=== PATIENT | female | born 1970 | race Caucasian/White ===

== ENCOUNTER → 2016-10-20 | Outpatient (CLI) | payer MEDICAID ==
[~2016-10-20] MED LIST: ALBUTEROL2 PUFFS/17 IN; AMARYL4 MG PO; CIPRO 500MG TA500 MG PO; CYMBALTA30 MG PO; DICLOFENAC 50MG50 MG PO; FLEXERIL10 MG PO; GABAPENTIN 400400 M1 GT; GABAPENTIN300 M1 PO; HUMULIN 70100 UNITS/ SC; INVOKANA100 MG PO; JANUVIA100 MG PO; KEFLEX 500MG.500 MG PO; LANTUS100 U/ML SC; LIPITOR40 MG PO; LORTAB 5/500 501 TAB PO; LYRICA 100 MG100 MG PO; MOTRIN 600MG.600 MG PO; ONGLYZA5 MG PO; PHENERGAN 25MG.25 M1 PO; PREGABALIN 50MG50 MG PO; RELION NOVOL100 U/M1 SC; SULFAMETHOXAZOL1 TA6 PO; TESSALON PERLE100 MG PO; TRADJENTA5 MG PO; ZITHROMAX Z PA250 MG PO; ZITHROMAX Z-PA250 M1 PO
--- NOTE | 2016-10-20 15:25 | RADIOLOGY REPORT PS360 ---
US THYROID HISTORY: TSH DEFICIENCY ORDERING PHYSICIAN: Bismark Manzo MD PATIENT AGE: 45 years COMPARISON: None FINDINGS: The right lobe measures 4.4 x 1.5 x 2.1 cm. There is some decreased echogenicity in the lower pole on the right and 14 x 7 mm and could be due to small nodule. This however is questionable and is not well demonstrated in both planes. Follow-up suggested. Left lobe is 4.8 x 2.1 x 2.7 cm and contains a 5 mm hypoechoic nodule superiorly, 6 mm hypoechoic nodule in the mid aspect, in an ill-defined 19 x 10 mm area of heterogeneous echogenicity in the lower pole. The isthmus is mildly prominent at 5 mm. IMPRESSION: 1. Ill-defined heterogeneous areas of echogenicity in both lobes of the thyroid gland and may represent small nodules versus heterogeneous echogenicity. 6 month follow-up recommended. 2. 2 hypoechoic nodules on the left at 5 and 6 mm.
== END ==
LOC: RAD 12:59
DX: E03.8 Other specified hypothyroidism (principal)

== ENCOUNTER 2016-12-25 13:47 | Emergency (ER) | payer MEDICAID ==
[~2016-12-25] VITALS: Ht 170.2 cm; Wt 113.4 kg
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
--- OUTSIDE RECORDS SUMMARY | 2016-12-25 14:01 | External Medical Summary Rpt ---
Author Author , FRANK MARIE Address Unknown Phone [email or web address] [email or web address] Care Nurse Practitioner Manager Name Role Phone RANDI BRYAN Unavailable Unavailable [employer] Unavailable Unavailable INC, [employer] Unavailable Unavailable INC, [employer] ANIDO ROS, ANIDO ROS Unavailable Unavailable JUMA TAR, Unavailable Unavailable JUMA TAR [facility] Unavailable Unavailable [facility], [facility] MEHTA, MEHTA Unavailable Unavailable MEHTA ALL, MEHTA ALL Unavailable Unavailable MAYANK ROMA, MAYANK Unavailable Unavailable ROMA [facility] Unavailable Unavailable [place], [facility] Unavailable Unavailable [place], [facility] KECIA HOFFMAN, KECIA Unavailable Unavailable DALTON JORGE HANNA, Unavailable Unavailable JORGE HANNA LISETTE RUI, Unavailable Unavailable LISETTE RUI CAIO KAMILA, CAIO Unavailable Unavailable [facility] Unavailable Unavailable [facility], [facility] ARCENIO RICHEY, Unavailable Unavailable JR ARCENIO RICHEY KAMILA, EDUARDO Unavailable Unavailable KAMIL[facility] Unavailable Unavailable INC, [facility], Unavailable Unavailable [facility] Unavailable Unavailable [facility], [facility] Un[facility], [facility] CHARISMA ZAFAR Unavailable Unavailable CHARISMA ANG, Unavailable Unavailable CHARISMA ZAFAR ANG, Unavailable Unavailable CHARISMA VILLATORO [facility] Unavailable Unavailable HOSPITALS, [facility] Purpose Continuity of Care Document - 04-14-2015 through 2016 Problems Code Diagnosis DOS Provider Status K5900 CONSTIPATIO 12-05-2016 [facility] N [facility] UNSPECIFIED T39914 CELLULITIS 12-05-2016 [facility] OF LEFT ASSOCIATES [place] E038 OTHER 10-20-2016 [facility] HYPOTHYROID INC ISM E042 NONTOXIC 10-20-2016 [facility] R GOITER IMAGING ASS E1142 TYPE 2 10-06-2016 [facility] DIABETES [facility] MELLITUS W/DIAB POLYNEUROPA THY E1165 TYPE 2 10-06-2016 [facility] DIABETES ASS[facility]IATES MELLITUS WITH HYPERGLYCEM IA H74201 CUTANEOUS 09-24-2016 [facility] ABSCESS OF ASSOCIATES UNSPECIFIED FOOT E039 HYPOTHYROID 09-20-2016 [facility] ISM [facility]ICI[facility] UNSPECIFIED LA E785 HYPERLIPIDE 09-20-2016 [facility] MALIKA ASS[facility] UNSPECIFIED I10 ESSENTIAL 09-20-2016 [facility] PRIMARY PHYSICIANS HYPERTENSIO LA N R34209 PAIN IN 09-20-2016 [facility] LEFT ASSOCIATES SHOULDER D352 BENIGN 07-14-2016 [facility] GLAND Z5329 PROC & [place] 07-01-2016 [facility] NOT CARRIED [facility] OUT INC PATIENTS OTH REASON [id number] TYPE 2 06-28-2016 [facility] MELLITUS CONSULTANTS PDR MACULAR EDEMA BILAT 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-28-2016 MARIA[facility] CURRENT USE RETINA OF INSULIN CONSULTANTS H538 OTHER 06-07-2016 [facility] DIST[facility]ANCE [facility] S G4733 OBSTRUCTIVE 06-01-2016 [facility] SLEEP HOME APNEA ADULT MEDICAL PEDIATRIC EQUIPME H3582 RETINAL 06-01-2016 SEN ISCHEMIA 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 H539 UNSPECIFIED 05-18-2016 [facility] J329 CHRONIC 05-18-2016 [facility] SINUSITIS MEDICAL UNSPECIFIED IMAGING ASS [id number] SPRAIN 05-10-2016 [facility] UNSPEC ASSOCIATES LIGAMENT ROGHT ANKLE INITIAL ENC L90484 PAIN IN 05-08-2016 [facility] RIGHT [facility]KLE [facility]ICAL [facility]ING ASS N86672 PAIN IN 05-08-2016 [facility] [place] RIGHT FOOT [facility]ICAL [facility]ING ASS M7989 OTHER 05-08-2016 [facility] SPECIFIED MEDICAL SOFT TISSUE IMAGING ASS DISORDERS M4656NH CONTUSION 05-08-2016 [place] [place] OF RIGHT MEDICAL ANKLE IMAGING ASS INITIAL ENCOUNTER V1053OQ CONTUSION 05-08-2016 V[facility] OF RIGHT MEDICAL FOOT IMAGING ASS INITIAL ENCOUNTER T90501Y DISPLACED 05-08-2016 [facility] FX LAT PHYSICIANS, [facility] PLL[facility] RT FOOT INIT CLOS FX L43219V NONDSPLC FX 05-08-2016 [facility] CUNE[facility]ORM INC RT FOOT INIT CLOS FX H14184P FX UNS 05-08-2016 [facility] BONES RT S INC FOOT INIT ENC CLOS FX E119 TYPE 2 03-28-2016 [facility] DIABETES PHYSICIANS MELLITUS GROUP WITHOUT COMPLICATIO NS E784 OTHER 03-28-2016 [facility] HYPERLIPIDE PHYSICIANS MALIKA GROUP 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-28-2016 [facility] LEGS PHYSICIANS SYNDROME GROUP Z6841 BODY MASS 03-28-2016 [facility] INDEX BMI PHYSICIANS 40.0-44.9 GROUP ADULT E782 MIXED 03-15-2016 [facility] HYPERLIPIDE ASSOCIATES MALIKA Z23 ENCOUNTER 03-15-2016 [facility] FOR ASSOCIATES IMMUNIZATIO N Z720 TOBACCO USE 03-15-2016 [facility] O29512 TYPE 2 DM 02-25-2016 CHARISMA W/PROLIFERA ANG TIVE DIAB RETINOPATHY W/ME J40 BRONCHITIS 02-11-2016 [facility] NOT PHYSICIANS SPECIFIED GROUP ACUTE OR CHRONIC Q99055 PAIN IN 01-26-2016 [facility] LEFT FOOT ASSOCIATES 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 T02033 PRESSURE 01-12-2016 PROGRESSIVE ULCER OF PODIATRY OTHER SITE STAGE 3 M2041 OTHER 01-12-2016 PROGRESSIVE HAMMER TOES PODIATRY ACQUIRED RIGHT FOOT M2570 OSTEOPHYTE 01-12-2016 PROGRESSIVE UNSPECIFIED PODIATRY JOINT E1140 TYPE 2 DM 12-28-2015 [facility] NEUROPATHY UNSPECIFIED M2042 OTHER 12-28-2015 [facility] FOOT ACQUIRED CENTER LEFT FOOT V28364 PAIN IN 12-28-2015 [facility] UNSPECIFIED FOOT FOOT CENTER D94586 DM UNDERLY 12-11-2015 [facility] PROLIF DIAB ASSOCIATES RETINPATH W/MACULAR EDEMA H259 UNSPECIFIED 12-04-2015 CHARISMA VILLATORO AGE-RELATED CATARACT I02740A UNS OPEN 11-05-2015 [facility] WOUND UNS ASSOCIATES FINGER W/O DAMAGE NAIL INIT C79631 CELLULITIS 11-01-2015 [facility] RIGHT PHYSICIANS, [place] [place] PLLC E669 OBESITY 08-21-2015 [place] [facility] J209 ACUTE 08-04-2015 [facility] BRONCHITIS ASSOCIATES UNSPECIFIED J74998 OTH SPEC DM 05-22-2015 SCIFRES ANG SEV NONPROLIF DIAB RETINOPATHY W/ME 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-22-2015 SCIFRES ANG ASTIGMATISM BILATERAL Medications Na ND Rx Da Fi Fi [...] 0 AR MA AL CY #5 91 RE 81 06 06 60 30 00 WA Ac LI 13 -0 -3 .0 00 L- ti ON 10 4- 0- 00 08 MA ve 31 20 20 83 RT IN 16 17 17 70 S 9 20 PH SY AR R MA 1 CY ML #5 30 91 GX 5/ 16 " AT 68 06 06 30 30 00 WA Ac OR 64 -0 -3 .0 00 L- ti VA 50 7- 0- [address] 46 20 20 48 RT AT 05 17 17 96 IN 4 69 PH AR 40 MA CY MG #5 TA 91 BL ET RE 00 05 06 10 30 00 WA Ac LI 16 -2 -1 .0 00 L- ti ON 91 4- 6- 00 08 MA ve 83 20 20 83 RT NO 30 17 17 75 VO 2 43 PH LI AR N MA R CY 10 0 #5 UN 91 IT /M L AT 68 05 06 30 30 00 WA Ac OR 64 -1 -0 .0 00 L- ti VA 50 5- 9- [address] 46 20 20 48 RT AT 05 17 17 77 IN 4 83 PH AR 40 MA CY MG #5 TA 91 BL ET ON 53 05 06 10 30 00 WA Ac ET 88 -1 -0 0. 00 L- ti OU 50 0- 2- 00 08 MA ve CH 24 20 20 0 83 RT 51 17 17 93 UL 0 68 PH TR AR A MA TE CY ST #5 ST 91 RI PS HU 00 04 05 40 30 00 WA Ac MU 00 -2 -1 .0 00 L- ti LI 28 0- 9- 00 08 MA ve N 71 20 20 83 RT 70 50 17 17 91 -3 1 10 PH 0 AR MA AL CY #5 91 WHITE 65 04 05 20 10 00 LA Ac LF 86 -1 -1 .0 00 L- ti AM 20 5- 2- 00 07 MA ve ET 42 20 20 48 RT HO 00 17 17 25 XA 5 07 PH ZO AR LE MA -T CY MP #5 DS 91 TA BL ET DU 57 04 05 30 30 00 LA Ac LO 23 -1 -0 .0 00 L- ti XE 70 2- 5- 00 07 MA ve TI 01 20 20 48 RT NE 93 17 17 15 0 65 PH HC AR L MA DR CY 60 #5 91 MG CA P NA 65 04 05 30 15 00 LA Ac AL 16 -1 -0 .0 00 L- ti OX 20 1- 5- 00 07 MA ve EN 19 20 20 48 RT 01 17 17 15 50 1 67 PH 0 AR MG MA CY TA BL #5 ET 91 RE 81 04 05 60 30 00 LA Ac LI 13 -1 -0 .0 00 L- ti ON 10 1- 5- 00 08 MA ve 31 20 20 83 RT IN 16 17 17 70 S 9 20 PH SY AR R MA 1 CY ML #5 30 91 GX 16 " RE 00 04 05 10 30 00 LA Ac LI 16 -1 -0 .0 00 L- ti ON 91 1- 5- 00 08 MA ve 83 20 20 83 RT NO 30 17 17 75 VO 2 43 PH LI AR N MA R CY 10 0 #5 UN 91 IT /M L HU 00 02 03 40 30 00 LA Ac MU 00 -0 -0 .0 00 L- ti LI 28 2- 3- 00 08 MA ve N 71 20 20 83 RT 70 50 17 17 41 -3 1 01 PH 0 AR MA AL CY #5 91 AT 68 02 03 30 30 00 LA Ac OR 64 -0 -0 .0 00 L- ti VA 50 2- 3- [address] 46 20 20 41 RT AT 05 17 17 27 IN 4 52 PH AR 40 MA CY MG #5 TA 91 BL ET RE 00 02 03 10 30 00 LA Ac LI 16 -0 -0 .0 00 L- ti ON 91 2- 3- 00 08 MA ve 83 20 20 83 RT NO 30 17 17 75 VO 2 43 PH LI AR N MA R CY 10 0 #5 UN 91 IT /M L AZ 59 02 03 6. 5 00 LA Ac IT 76 -0 -0 00 00 L- ti HR 23 8- 3- 0 07 MA ve OM 06 20 20 46 RT YC 00 17 17 95 IN 1 35 PH AR 25 MA 0 CY MG #5 TA 91 BL ET BE 68 02 03 42 7 00 LA Ac NZ 38 -0 -0 .0 00 L- ti ON 20 8- 3- 00 07 MA ve AT 24 20 20 46 RT AT 70 17 17 95 E 1 38 PH 10 AR 0 MA MG CY CA #5 PS 91 UL E DO 23 01 01 14 7 00 LA Ac XY 15 -0 -2 .0 00 L- ti CY 50 2- 7- 00 07 MA ve CL 13 20 20 46 RT IN 52 17 17 21 E 5 78 PH MO AR NO MA CY 10 0 #5 MG 91 TA BL ET BE 68 01 01 42 7 00 LA Ac NZ 38 -0 -2 .0 00 L- ti ON 20 2 7- 00 07 MA ve AT 24 20 20 46 RT AT 70 17 17 21 E 1 79 PH 10 AR 0 MA MG CY CA #5 PS 91 UL E Immunization Name Date Rout CVX Reac Dose Comm Prov Is Faci e tion ent ider Refu lity Give sed n IIV4 10-0 158 FAMI No FAMI 4-20 LY LY VACC 16 CARE CARE SPLI ASSO ASSO T CIAT CIAT VIRU ES ES S 0.5 ML DOS FOR IM USE Procedures Procedure DOS Code Location Performer Comment BLOOD 64885 FAMILY FAMILY COUNT 7 CARE CARE COMPLETE ASSOCIATE ASSOCIATE AUTO&AUTO S S DIFRNTL WBC US SOFT 35562 [place] [facility] TISSUE 7 MEDICAL HEAD & IMAGING [place] [address] COMBINED COMBINED FREE 7 PHYSICIAN PHYSICIAN THYROXINE S LA S LA SUSCEPTIB 79291 COMBINED COMBINED ILITY 7 PHYSICIAN PHYSICIAN STUDY S LA S LA ANTIMICRO BIAL DISK METHOD INCISION 95176 FAMILY JAVIER & 7 CARE DRAINAGE ASSOCIATE ABSCESS S SIMPLE/[place] [address] COMBINED COMBINED THYROID 7 PHYSICIAN PHYSICIAN STIMULATI S LA S LA NG HORMONE TSH BLOOD 87263 FAMILY JAVIER COUNT 7 CARE COMPLETE ASSOCIATE AUTO&AUTO S DIFRNTL WBC LIPID 38910 FAMILY FAMILY PANEL 7 CARE PIT SLAGMAN ASSOCIATE S S COMPREHEN 35126 COMBINED COMBINED SIVE 7 PHYSICIAN PHYSICIAN METABOLIC S LA S LA PANEL HEMOGLOBI 18602 FAMILY JAVIER N 7 CARE GLYCOSY[place] [address] [facility] ESTRADIOL 7 [facility] GONADOTRO [address] [facility] PIN 7 HEALTHCAR HEALTHCAR FOLLICLE E E STIMULATI HOSPITALS HOSPITALS NG HORMONE GONADOTRO 97185 [facility] PIN 7 HEALTHCAR HEALTHCAR LUTEINIZI E [place] [address] [facility] PROLACTIN 7 HEALTHCAR HEALTHCAR E E HOSPITALS HOSPITALS BASIC 22906 [facility] METABOLIC 7 HEALTHCAR HEALTHCAR PANEL E E CALCIUM [place] [address] [facility] FREE 7 HEALTHCAR HEALTHCAR THYROXINE [place] [address] [facility] SOMATOMED 7 HEALTHCAR HEALTHCAR IN E E HOSPITALS HOSPITALS COLLECTIO 24382 [facility] N VENOUS 7 HEALTHCAR HEALTHCAR BLOOD E [place] [address] [facility] STREPTOCO 7 [facility] CCUS INC INC GROUP A CUL BACT 03792 [facility] IN[facility] XCPT 7 [facility] URINE INC INC BLOOD/STO OL AEROBIC ISOL DSTRJ 71799 MARIANA ZAFAR LOCLZD 7 RETINA LESION CONSULTAN RETINA TS 1/> [place] [address] COMBINED COMBINED THYROID 7 PHYSICIAN PHYSICIAN STIMULATI S LA S LA NG HORMONE TSH HEMOGLOBI 00736 FAMILY JAVIER N 7 CARE GLYCOSYLA ASSOCIATE LIZ A1C S MRI BRAIN 77009 [facility] INGRAM BRAIN 6 [facility] STEM INC INC W/CONTRAS T MATERIAL MRI BRAIN 20475 VISHAL MEHTA BRAIN 6 MEDICAL STEM W/[place] [address] [facility] INGRAM UREA 6 [facility] NITROGEN INC INC QUANTITAT TAMIKO COLLECTIO 30748 [facility]GRAM N VENOUS 6 [facility] BLOOD INC INC VENIPUNCT URE CREATININ 17738 [facility] INGRAM E BLOOD 6 [facility] INC INC RESP ASST E0470 COR[facility] BERUMENC 6 HOME HOME BI-LEVL MEDICAL MEDICAL PRSS EQUIPME EQUIPME CAPABILIT Y W/O BACKU DSTRJ 96552 SEN SEN LOCLZD 6 LESION RETINA 1/> SESS PC COMPUTERI 47723 SEN SEN ZED 6 OPHTHALMI C IMAGING OPTIC NERVE COLLECTIO 43538 FAMILY FAMILY N VENOUS 6 CARE CARE BLOOD ASSOCIATE [place] [address] [facility] ACE PROLACTIN 6 [facility] MRI BRAIN [address] [facility] BRAIN 6 MEDICAL STEM W/O IMAGING CONTRAST ASS MATERIAL INJECTION J2778 SEN SEN 6 RANIBIZUM AB 0.1 MG COMPUTERI 34600 SEN SEN ZED 6 OPHTHALMI C IMAGING RETINA INTRAVITR 58473 SEN SEN EAL NJX 6 PHARMACOL OGIC AGT SPX RADEX 53264 [place] LISETTE ANKLE 6 MEDICAL RUI COMPLETE IMAGING MINIMUM 3 ASS VIEWS RADEX 92954 [place] LISETTE FOOT 6 MEDICAL RUI COMPLETE IMAGING MINIMUM 3 ASS VIEWS CRTCHS E0114 [facility]ED ADVANCED UNDARM 6 TECHNOLOG TECHNOLOG OTH THAN IES INC IES INC WOOD PAIR PAD TIP&HNDGR IP RESP ASST E0470 CORNELIUS BERUMENC 6 HOME HOME BI-LEVL MEDICAL MEDICAL PRSS EQUIPME EQUIPME CAPABILIT Y W/O BACKU COMPUTERI 88343 CHARISMA FLORENTINOD 6 OPHTHALMI C IMAGING RETINA INJECTION J2778 CHARISMA Joaquin RANIBIZUM AB 0.1 MG INTRAVITR 91823 CHARISMA ZAFAR EAL NJX 6 PHARMACOL OGIC AGT SPX CONTINUOU E0601 CORNELIUS CORNELIUS S 6 HOME HOME POSITIVE MEDICAL MEDICAL AIRWAY EQUIPME EQUIPME PRESSURE DEVICE CREATININ 41974 FAMILY JAVIER E OTHER 6 CARE R H SOURCE ASSOCIATE S HEMOGLOBI 63538 FAMILY JAVIER N 6 CARE R H GLYCOSYLA ASSOCIATE LIZ A1C S LIPID 00122 FAMILY JAVIER PANEL 6 CARE R H ASSOCIATE S COLLECTIO 81230 FAMILY JAVIER N VENOUS 6 CARE R H BLOOD ASSOCIATE VENIPUNCT S URE ALBUMIN 82265 FAMILY JAVIER URINE 6 CARE R H MICROALBU ASSOCIATE MIN S SEMIQUANT ITATIVE IIV4 VACC 31601 FAMILY FAMILY SPLIT 6 CARE CARE VIRUS 0.5 ASSOCIATE ASSOCIATE ML DOS S S FOR IM USE COMPREHEN 87237 COMBINED COMBINED SIVE 6 PHYSICIAN PHYSICIAN METABOLIC S LA S LA PANEL FULL FACE A7030 CORNELIUS SHIELDS MASK 6 HOME HOME USED MEDICAL MEDICAL W/POS EQUIPME EQUIPME ARWAY PRESS DEVICE EA FILTER A7038 CORNELIUSTAPAN SHIELDS DISPBL 6 HOME HOME USED MEDICAL MEDICAL W/POS EQUIPME EQUIPME ARWAY PRESSURE DEVICE FILTER A7039 CORNELIUS SHIELDS NON 6 HOME HOME DISPBL MEDICAL MEDICAL USED EQUIPME EQUIPME W/POS ARWAY PRESS DEVICE CONTINUOU E0601 CORNELIUS SHIELDS S 6 HOME HOME POSITIVE MEDICAL MEDICAL AIRWAY EQUIPME EQUIPME PRESSURE DEVICE HUMDIFIR E0562 CORNELIUS SHIELDS HEATED 6 HOME HOME USED MEDICAL MEDICAL W/POS EQUIPME EQUIPME ARWAY PRESSURE DEVICE HEADGEAR A7035 CORNELIUS SHIELDS USED 6 HOME HOME W/POSITIV MEDICAL MEDICAL E AIRWAY EQUIPME EQUIPME PRESSURE DEVICE TUBING A7037 CORNELIUS SHIELDS USED WITH 6 HOME HOME POSITIVE MEDICAL MEDICAL AIRWAY EQUIPME EQUIPME PRESSURE DEVICE DSTRJ 72052 CHARISMA ZAFAR LOCLZD 6 ANG ANG LESION RETINA 1/> SESS PC INTRAVITR 19803 CHARISMA ZAFAR EAL NJX 6 ANG ANG PHARMACOL OGIC AGT SPX INJECTION J2778 CHARISMA ZAFAR 6 ANG ANG RANIBIZUM AB 0.1 MG COMPUTERI 69382 CHARISMA FLORENTINOD 6 ANG ANG OPHTHALMI C IMAGING RETINA COLLECTIO 51789 FAMILY KECIA N 6 CARE DALTON CAPILLARY ASSOCIATE BLOOD S SPECIMEN HEMOGLOBI 44998 FAMILY KECIA N 6 CARE DALTON GLYCOSYLA ASSOCIATE LIZ A1C S SLEEP STD 45715 [facility] AIRFLOW 6 [facility] HRT INC INC RATE&O2 SAT EFFORT UNATT COMPUTERI 37090 CHARISMA ZAFAR ZED 6 ANG ANG OPHTHALMI C IMAGING RETINA INJECTION J2778 CHARISMA ZAFAR 6 ANG ANG RANIBIZUM AB 0.1 MG INTRAVITR 68881 CHARISMA ZAFAR EAL NJX 6 ANG ANG PHARMACOL OGIC AGT SPX FOR DIAB A5513 THE THE ONLY MX 6 [facility]ALTH[facility] HEALTHY DNSITY FOOT FOOT INSRT CENTER CENTER CSTM MOLD CSTM EA DIAB ONLY A5500 THE THE FIT CSTM 6 HEALTHY HEALTHY PREP&SPL FOOT FOOT SHOE MX CENTER CENTER DNSITY INSRT HEMOGLOBI 49504 FAMILY ANIDO ROS N 6 CARE GLYCOSYLA ASSOCIATE LIZ A1C S LIPID 27935 FAMILY JAVIER PANEL 6 CARE R H ASSOCIATE S COMPREHEN 59388 COMBINED COMBINED SIVE 6 PHYSICIAN PHYSICIAN METABOLIC S LA S LA PANEL INJECTION J9035 CHARISMA Joaquin ANG ANG BEVACIZUM AB 10 MG COMPUTERI 97991 CHARISMA FLORENTINOD 6 ANG ANG OPHTHALMI C IMAGING RETINA INTRAVITR 41487 CHARISMA ZAFAR EAL NJX 6 ANG ANG PHARMACOL OGIC AGT SPX DEBRIDEME 46211 PROGRESSI MAYANK NT 6 VE ROMA SUBCUTANE PODIATRY OUS TISSUE 20 SQ CM/< SIMPLE 47347 FAMILY JUMA REPAIR 6 CARE TAR SCALP/NEC ASSOCIATE K/AX/JENNIFER S T/TRUNK 2.5CM/< DEBRIDEME 37668 PROGRESSI MAYANK NT 6 VE ROMA SUBCUTANE PODIATRY OUS TISSUE 20 SQ CM/< WALKING L4360 PROGRESSI MAYANK BOOT 6 VE ROMA PNEUMATC PODIATRY &/ VACUUM PREFAB CUSTM FIT ADD LOW L2840 PROGRESSI MAYANK EXTREM 6 VE ROMA ORTHOTIC PODIATRY TIB LENGTH SOCK FX/= EA INTRAVITR 89283 CHARISMA ZAFAR EAL NJX 6 ANG ANG PHARMACOL OGIC AGT SPX INJECTION J9035 CHARISMA ZAFAR 6 ANG ANG BEVACIZUM AB 10 MG COMPUTERI 00054 CHARISMA MCKEON 6 ANG ANG OPHTHALMI C IMAGING RETINA RADEX 47433 VISHAL MEHTA ALL FOOT 6 MEDICAL COMPLETE IMAGING MINIMUM 3 ASS VIEWS COMPUTERI 34614 CHARISMA MCKEON 6 ANG ANG OPHTHALMI C IMAGING RETINA INJECTION J9035 CHARISMA ZAFAR 6 ANG ANG BEVACIZUM AB 10 MG INTRAVITR 96258 CHARISMA ZAFAR EAL NJX 6 ANG ANG PHARMACOL OGIC AGT SPX HEMOGLOBI 93243 FAMILY JAVIER N 6 CARE GLYCOSYLA ASSOCIATE LIZ A1C S COLLECTIO 41640 FAMILY JAVIER N 6 CARE CAPILLARY ASSOCIATE BLOOD S SPECIMEN INTRAVITR 10191 CHARISMA ALEJANDRO NJX 6 ANG ANG PHARMACOL OGIC AGT SPX INJECTION J9035 CHARISMA ZAFAR 6 ANG ANG BEVACIZUM AB 10 MG COMPUTERI 48887 CHARISMA FLORENTINOD 6 ANG ANG OPHTHALMI C IMAGING RETINA COLLECTIO 34696 FAMILY JAVIER N 6 CARE R H CAPILLARY ASSOCIATE BLOOD S SPECIMEN BLOOD 23317 FAMILY JAVIER COUNT 6 CARE R H COMPLETE ASSOCIATE AUTO&AUTO S DIFRNTL WBC INTRAVITR 89809 CHARISMA ZAFAR EAL NJX 6 ANG ANG PHARMACOL OGIC AGT SPX INJECTION J9035 CHARISMA ZAFAR 6 ANG ANG BEVACIZUM AB 10 MG COMPUTERI 76948 CHARISMA MCKEON 6 ANG ANG OPHTHALMI C IMAGING RETINA COMPREHEN 97774 COMBINED COMBINED SIVE 6 PHYSICIAN PHYSICIAN METABOLIC S LA S LA PANEL BLOOD 49046 FAMILY JAVIER COUNT 6 CARE R H COMPLETE ASSOCIATE AUTO&AUTO S DIFRNTL WBC LIPID 86422 FAMILY FAMILY PANEL 6 CARE PIT SLAGMAN ASSOCIATE S S HEMOGLOBI 46257 FAMILY FAMILY N 6 CARE CARE GLYCOSYLA ASSOCIATE ASSOCIATE LIZ A1C S S INJECTION J9035 CHARISMA ZAFAR 6 ANG ANG BEVACIZUM AB 10 MG INTRAVITR 94836 CHARISMA ZAFAR EAL NJX 6 ANG ANG PHARMACOL OGIC AGT SPX FLUORESCE 71020 CHARISMA ZAFAR IN ANGRPH 6 ANG ANG W/MULTIFR YAMIL I&R UNI/BI COMPUTERI 82846 CHARISMA ZAFAR ZED 5 ANG ANG OPHTHALMI C IMAGING RETINA OPHTH 88030 SCIFRES SCIFRES MEDICAL 5 ANG ANG XM&EVAL COMPRE NEW PT 1/> VST Encounters Encounter Start End Date Code Location Performer Type Date OFFICE 71043 FAMILY GEOVANNYBERRY OUTPATIEN 7 7 CARE T VISIT ASSOCIATE 15 S MINUTES [facility] T OFFICE 67924 FAMILY JAVIER OUTPATIEN 7 7 CARE T VISIT ASSOCIATE 15 S MINUTES OFFICE 60890 FAMILY JAVIER OUTPATIEN 7 7 CARE T VISIT ASSOCIATE 25 S MINUTES OFFICE 14542 JUANCHO BRYAN OUTPATIEN 7 7 MEDICAL T VISIT SERV 15 FOUNDATIO MINUTES [facility] EMERGENCY 26942 [facility] 7 7 [facility] DEPARTMEN INC T VISIT LIMITED/M [facility] - 7 7 [facility] OUTPATIEN INC T OFFICE 04939 FAMILY JAVIER OUTPATIEN 7 7 CARE T VISIT ASSOCIATE 15 S MINUTES [facility] - 6 6 [facility] T [facility] - [facility] OUTPATIEN INC T OFFICE 32706 FAMILY JAVIER OUTPATIEN 6 6 CARE T VISIT ASSOCIATE 15 S MINUTES [facility]OSP[facility] - 6 6 [facility] OUTPATIEN INC T OFFICE 60332 FAMILY JAVIER OUTPATIEN 6 6 CARE R H T VISIT ASSOCIATE 15 S MINUTES EMERGENCY 47369 [facility] 6 6 [facility] DEPARTMEN INC T VISIT MODERATE SEVERITY EMERGENCY 55538 JL RICHEY, 6 6 PHYSICIAN JR RG [facility] S, [facility] T VISIT HIGH/URGE NT SEVERITY [facility]OSPITAL [facility] - 6 6 [facility] INC T OFFICE 90957 [facility] LENNOX SUÁREZ OUTPATIEN 6 6 PHYSICIAN T NEW 45 S GROUP MINUTES OFFICE 52290 FAMILY JAVIER OUTPATIEN 6 6 CARE R H T VISIT ASSOCIATE 25 S MINUTES OFFICE 66269 [facility] JORGE OUTPATIEN 6 6 PHYSICIAN HANNA T VISIT S GROUP 15 MINUTES OFFICE 72441 CHARISMA ZAFAR OUTPATIEN 6 6 ANG ANG T VISIT 25 MINUTES OFFICE 37755 FAMILY KECIA OUTPATIEN 6 6 CARE DALTON T VISIT ASSOCIATE 15 S MINUTES [facility]PITAL [facility] - 6 6 [facility] INC T OFFICE 15076 PROGRESSI MAYANK OUTPATIEN 6 6 VE ROMA T VISIT PODIATRY 15 MINUTES OFFICE 33770 PROGRESSI MAYANK OUTPATIEN 6 6 VE ROMA T VISIT PODIATRY 15 MINUTES OFFICE 76535 FAMILY JAVIER OUTPATIEN 6 6 CARE R H T VISIT ASSOCIATE 15 S MINUTES OFFICE 05308 CHARISMA ZAFAR OUTPATIEN 6 6 ANG ANG T VISIT 25 MINUTES OFFICE 48397 PROGRESSI MAYANK OUTPATIEN 6 6 VE ROMA T VISIT PODIATRY 15 MINUTES OFFICE 61288 PROGRESSI MAYANK OUTPATIEN 6 6 VE ROMA T NEW 30 PODIATRY MINUTES EMERGENCY 15033 JL CLARK 6 6 [facility]IC[facility] HIGH/URGE NT SEVERITY OFFICE 14483 FAMILY JAVIER OUTPATIEN 6 6 CARE T VISIT ASSOCIATE 25 S MINUTES OFFICE 85340 [place] HELENA CONSULTAT 6 6 MEDICAL L ION SERV NEW/ESTAB FOUNDATIO PATIENT N 60 MIN OFFICE [id number] FAMILY JAVIER OUTPATIEN 6 6 CARE R H T VISIT ASSOCIATE 15 S MINUTES OFFICE 60217 FAMILY JAVIER OUTPATIEN 6 6 CARE R H T VISIT ASSOCIATE 25 S MINUTES OFFICE 06030 CHARISMA ZAFAR OUTPATIEN 5 5 SHAUNA BEE 45 MINUTES OFFICE 03387 JUAN JOSE KEARNEY OUTPATIEN 5 5 [facility] 15 MINUTES OFFICE 07779 FAMILY JAVIER OUTPATIEN 5 5 CARE R H T VISIT ASSOCIATE 25 S MINUTES
--- OUTSIDE RECORDS SUMMARY | 2016-12-25 14:01 | External Medical Summary Rpt ---
Author Author , FRANK MARIE Address Unknown Phone [email or web address] Providers Care Steel Loader Name Role Phone RANDI BRYAN Unavailable Unavailable [...] Unavailable INC, [facility], Unavailable Unavailable [facility] Unavailable Unavailable [facility], [facility] Unavailable [...] Unavailable CENTER, [facility] CHARISMA ZAFRA Unavailable Unavailable CHARISMA ANG, Unavailable Unavailable CHARISMA ZAFAR ANG, Unavailable Unavailable CHARISMA VILLATORO [facility] Unavailable Unavailable [facility]PITALS, [facility] Purpose Continuity of Care Document - 04-14-2015 through 2016 Problems Code Diagnosis DOS Provider Status K5900 CONSTIPATIO 12-05-2016 [facility] UNSPECIFIED S68004 CELLULITIS 12-05-2016 [facility] OF LEFT ASSOCIATES LOWER LIMB E038 OTHER 10-20-2016 [facility] SPECIFIED [facility] HYPOTHYROID INC ISM E042 NONTOXIC 10-20-2016 [facility] E1142 TYPE 2 10-06-2016 [facility] DIABETES [facility]IATES MELLITUS W/DIAB POLYNEUROPA THY E1165 TYPE 2 10-06-2016 [facility] DIABETES ASSOCIATES [place]IT[place] HYPERGLYCEM [place] C93551 CUTANEOUS 09-24-2016 [facility] ABSCESS OF ASSOCIATES UNSPECIFIED FOOT E039 HYPOTHYROID 09-20-2016 COMBINED ISM PHYSICIANS UNSPECIFIED LA E785 HYPERLIPIDE 09-20-2016 [facility] MALIKA ASSOCIATES UNSPECIFIED I10 ESSENTIAL 09-20-2016 [facility] PRIMARY PHYSICIANS HYPERTENSIO LA N C09858 PAIN IN 09-20-2016 [facility] LEFT [facility] SHOULDER D352 BENIGN 07-14-2016 [facility] GLAND Z5329 PROC & [place] 07-01-2016 [facility] NOT CARRIED [facility] OUT INC PATIENTS OTH REASON [id number] TYPE 2 06-28-2016 [facility] RETINA MELLITUS CONSULTANTS PDR MACULAR EDEMA BILAT 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 CONSULTANTS H538 OTHER 06-07-2016 [facility]UAL [facility] DISTUR[facility]ANCE [facility]ING ASS S G4733 OBSTRUCTIVE 06-01-2016 COR[facility] SLEEP HOME APNEA ADULT MEDICAL PEDIATRIC EQUIPME H3582 RETINAL 06-01-2016 SEN ISCHEMIA 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 H539 UNSPECIFIED 05-18-2016 [facility] J329 CHRONIC 05-18-2016 [facility] SINUSITIS MEDICAL UNSPECIFIED IMAGING ASS G00179P SPRAIN 05-10-2016 [facility] UNSPEC ASSOCIATES LIGAMENT ROGHT ANKLE INITIAL ENC R48886 PAIN IN 05-08-2016 [facility] RIGHT ANKLE MEDICAL IMAGING ASS M02855 PAIN IN 05-08-2016 [facility] FOOT [facility]ICAL [facility] ASS M7989 OTHER 05-08-2016 [facility] SPECIFIED MEDICAL SOFT TISSUE IMAGING ASS DISORDERS C7549DY CONTUSION 05-08-2016 [facility] OF RIGHT MEDICAL ANKLE IMAGING ASS INITIAL ENCOUNTER Q2356GU CONTUSION 05-08-2016 V[facility] OF RIGHT MEDICAL FOOT IMAGING ASS INITIAL ENCOUNTER O40364K DISPLACED 05-08-2016 J[facility] FX LAT PHYSICIANS, [facility]UNE[facility] PLLC RT FOOT INIT CLOS FX [id number] NONDSPLC FX 05-08-2016 [facility] CUNEIFORM INC RT FOOT INIT CLOS FX [id number] FX UNS 05-08-2016 [facility]VANCED METATARSAL TECHNOLOGIE BONES RT S INC FOOT INIT ENC CLOS FX E119 TYPE 2 03-28-2016 [facility] DIABETES PHYSICIANS MELLITUS GROUP WITHOUT COMPLICATIO NS E784 OTHER 03-28-2016 [facility] HYPERLIPIDE PHYSICIANS MALIKA GROUP 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-28-2016 [facility] LEGS PHYSICIANS SYNDROME GROUP Z6841 BODY MASS 03-28-2016 [facility] INDEX BMI PHYSICIANS 40.0-44.9 GROUP ADULT E782 MIXED 03-15-2016 [facility] HYPERLIPIDE [facility]IATES MALIKA Z23 ENCOUNTER 03-15-2016 [facility] FOR ASS[facility]IATES IMMUNIZATIO N Z720 TOBACCO USE 03-15-2016 [facility] T67955 TYPE 2 DM 02-25-2016 CHARISMA W/PROLIFERA ANG TIVE DIAB RETINOPATHY W/ME J40 BRONCHITIS 02-11-2016 [facility] NOT PHYSICIANS SPECIFIED GROUP ACUTE OR CHRONIC A98418 PAIN IN 01-26-2016 [facility] LEFT FOOT ASSOCIATES C88355 TYPE 1 01-12-2016 PRO[facility] DIABETES PODIATRY MELLITUS WITH FOOT ULCER C96321 PRESSURE 01-12-2016 PROGRESSIVE ULCER OF PODIATRY OTHER SITE STAGE 3 M2041 OTHER 01-12-2016 PROGRESSIVE HAMMER TOES PODIATRY ACQUIRED RIGHT FOOT M2570 OSTEOPHYTE 01-12-2016 PROGRESSIVE UNSPECIFIED PODIATRY JOINT E1140 TYPE 2 DM 12-28-2015 [facility] NEUROPATHY UNSPECIFIED M2042 OTHER 12-28-2015 [facility] ACQUIRED CENTER LEFT FOOT U38705 PAIN IN 12-28-2015 [facility] U[facility]PECIF[facility]OT CENTER N08661 DM UNDERLY 12-11-2015 [facility] PROLIF DIAB ASSOCIATES RETINPATH W/MACULAR EDEMA H259 UNSPECIFIED 12-04-2015 CHARISMA VILLTAORO AGE-RELATED CATARACT O64119O UNS OPEN 11-05-2015 [facility] WOUND UNS ASSOCIATES FINGER W/O DAMAGE NAIL INIT B76173 CELLULITIS 11-01-2015 [facility] OF RIGHT PHYSICIANS, LOWER LIMB PLLC E669 OBESITY 08-21-2015 [place] [facility] J209 ACUTE 08-04-2015 [facility] BRONCHITIS ASSOCIATES UNSPECIFIED E34758 OTH SPEC DM 05-22-2015 SCIFRES ANG SEV NONPROLIF DIAB RETINOPATHY W/ME U51012 REGULAR 05-22-2015 SCIFRES ANG ASTIGMATISM BILATERAL Medications [...] WHITE 65 04 05 20 10 00 VT Ac LF 86 -1 -1 .0 00 L- ti AM 20 5- 2- 00 07 MA ve ET 42 20 20 48 RT HO 00 17 17 25 XA 5 07 PH ZO AR LE MA -T CY MP #5 DS 91 TA BL ET DU 57 04 05 30 30 00 VT Ac LO 23 -1 -0 .0 00 L- ti XE 70 2- 5- 00 07 MA ve TI 01 20 20 48 RT NE 93 17 17 15 0 65 PH HC AR L MA DR CY 60 #5 91 MG CA P NA 65 04 05 30 15 00 VT Ac KS 16 -1 -0 .0 00 L- ti OX 20 1- 5- 00 07 MA ve EN 19 20 20 48 RT 01 17 17 15 50 1 67 PH 0 AR MG MA CY TA BL #5 ET 91 RE 81 04 05 60 30 00 VT Ac LI 13 -1 -0 .0 00 L- ti ON 10 1- 5- 00 08 MA ve 31 20 20 83 RT IN 16 17 17 70 S 9 20 PH SY AR R MA 1 CY ML #5 30 91 GX 16 " RE 00 04 05 10 30 00 VT Ac LI 16 -1 -0 .0 00 L- ti ON 91 1- 5- 00 08 MA ve 83 20 20 83 RT NO 30 17 17 75 VO 2 43 PH LI AR N MA R CY 10 0 #5 UN 91 IT /M L HU 00 02 03 40 30 00 VT Ac MU 00 -0 -0 .0 00 L- ti LI 28 2- 3- 00 08 MA ve N 71 20 20 83 RT 70 50 17 17 41 -3 1 01 PH 0 AR MA AL CY #5 91 AT 68 02 03 30 30 00 VT Ac OR 64 -0 -0 .0 00 L- ti VA 50 2- 3- [address] 46 20 20 41 RT AT 05 17 17 27 IN 4 52 PH AR 40 MA CY MG #5 TA 91 BL ET RE 00 02 03 10 30 00 VT Ac LI 16 -0 -0 .0 00 L- ti ON 91 2- 3- 00 08 MA ve 83 20 20 83 RT NO 30 17 17 75 VO 2 43 PH LI AR N MA R CY 10 0 #5 UN 91 IT /M L AZ 59 02 03 6. 5 00 VT Ac IT 76 -0 -0 00 00 L- ti HR 23 8- 3- 0 07 MA ve OM 06 20 20 46 RT YC 00 17 17 95 IN 1 35 PH AR 25 MA 0 CY MG #5 TA 91 BL ET BE 68 02 03 42 7 00 VT Ac NZ 38 -0 -0 .0 00 L- ti ON 20 8- 3- 00 07 MA ve AT 24 20 20 46 RT AT 70 17 17 95 E 1 38 PH 10 AR 0 MA MG CY CA #5 PS 91 UL E DO 23 01 01 14 7 00 VT Ac XY 15 -0 -2 .0 00 L- ti CY 50 2- 7- 00 07 MA ve CL 13 20 20 46 RT IN 52 17 17 21 E 5 78 PH MO AR NO MA CY 10 0 #5 MG 91 TA BL ET BE 68 01 01 42 7 00 VT Ac NZ 38 -0 -2 .0 00 [...] Procedure DOS Code Location Performer Comment BLOOD 14497 FAMILY FAMILY COUNT 7 CARE CARE COMPLETE ASSOCIATE ASSOCIATE AUTO&AUTO S S DIFRNTL WBC US SOFT 56280 [facility] TISSUE 7 MEDICAL HEAD & IMAGING [place] [address] COMBINED COMBINED FREE 7 PHYSICIAN PHYSICIAN THYROXINE S LA S LA SUSCEPTIB 13714 COMBINED COMBINED ILITY 7 PHYSICIAN PHYSICIAN STUDY S LA S LA ANTIMICRO BIAL DISK METHOD INCISION 73613 FAMILY JAVIER & 7 CARE DRAINAGE ASSOCIATE ABSCESS S SIMPLE/[place] [address] COMBINED COMBINED THYROID 7 PHYSICIAN PHYSICIAN STIMULATI S LA S LA NG HORMONE TSH BLOOD 72413 FAMILY JAVIER COUNT 7 CARE COMPLETE ASSOCIATE AUTO&AUTO S DIFRNTL WBC LIPID 70871 FAMILY FAMILY PANEL 7 CARE LOSS PREVENTION RESEARCH ENGINEER ASSOCIATE S S COMPREHEN 71840 COMBINED COMBINED SIVE 7 PHYSICIAN PHYSICIAN METABOLIC S LA S LA PANEL HEMOGLOBI 62498 FAMILY JAVIER N 7 CARE GLYCOSY[place] [address] [facility] ESTRADIOL 7 [facility] GONADOTRO [address]1801 [facility] PIN 7 HEALTHCAR HEALTHCAR FOLLICLE E E STIMULATI HOSPITALS HOSPITALS NG HORMONE GONADOTRO 22008 [facility] PIN 7 HEALTHCAR HEALTHCAR LUTEINIZI E [place] [address] [facility] PROLACTIN 7 [facility]CAR [facility]ALTH[facility] E E HOSPITALS HOS[facility]ITALS BASIC 93797 [facility] METABOLIC 7 HEALTHCAR HEALTHCAR PANEL E E CALCIUM [place] [address] [facility] FREE 7 HEALTHCAR HEALTHCAR THYROXINE [place] [address] [facility] SOMATOMED 7 HEALTHCAR HEALTHCAR IN E E HOSPITALS HOSPITALS COLLECTIO 15295 [facility] N VENOUS 7 HEALTHCAR HEALTHCAR BLOOD E E [place]EN[place]UNCT [place] [address] [facility] INGRAM STREPTOCO 7 [facility] CCUS INC INC GROUP A CUL BACT 32812 [facility] INGRAM XCPT 7 [facility] URINE INC INC BLOOD/STO OL AEROBIC ISOL DSTRJ 46103 MARIANA ZAFAR LOCLZD 7 RETINA LESION CONSULTAN RETINA TS 1/> [place] [address] COMBINED COMBINED THYROID 7 PHYSICIAN PHYSICIAN STIMULATI S LA S LA NG HORMONE TSH HEMOGLOBI 87327 FAMILY JAVIER N 7 CARE GLYCOSYLA ASSOCIATE LIZ A1C S MRI BRAIN 16019 [facility] INGRAM BRAIN 6 [facility] STEM INC INC W/CONTRAS T MATERIAL MRI BRAIN 71864 VISHAL MEHTA BRAIN 6 MEDICAL STEM W/[place] [address] [facility] INGRAM UREA 6 [facility] NITROGEN INC INC QUANTITAT TAMIKO COLLECTIO 31020 [facility] INGRAM N VENOUS 6 [facility] BLOOD INC INC VENIPUNCT URE CREATININ 31578 [facility] INGRAM E BLOOD 6 [facility] INC INC RESP ASST E0470 CORNELIUS BERUMENC 6 HOME HOME BI-LEVL MEDICAL MEDICAL PRSS EQUIPME EQUIPME CAPABILIT Y W/O BACKU DSTRJ 86079 SEN SEN LOCLZD 6 LESION RETINA 1/> SESS PC COMPUTERI 99292 SEN SEN ZED 6 OPHTHALMI C IMAGING OPTIC NERVE COLLECTIO 00118 FAMILY FAMILY N VENOUS 6 CARE CARE BLOOD ASSOCIATE [place] [address] [facility] PROLACTIN 6 [facility] BRAIN 30208 [facility] BRAIN 6 MEDICAL STEM W/O IMAGING CONTRAST ASS MATERIAL INJECTION J2778 SEN SEN 6 RANIBIZUM AB 0.1 MG COMPUTERI 39808 SEN SEN ZED 6 OPHTHALMI C IMAGING RETINA INTRAVITR 76829 SEN SEN EAL NJX 6 PHARMACOL OGIC AGT SPX RADEX 49665 [facility] LISETTE ANKLE 6 MEDICAL RUI COMPLETE IMAGING MINIMUM 3 ASS VIEWS RADEX 04505 [facility] LISETTE FOOT 6 MEDICAL RUI COMPLETE IMAGING MINIMUM 3 ASS VIEWS CRTCHS E0114 ADVANCED ADVANCED UNDARM 6 TECHNOLOG TECHNOLOG OTH THAN IES INC IES INC WOOD PAIR PAD TIP&HNDGR IP RESP ASST E0470 CORNELIUS BERUMENC 6 HOME HOME BI-LEVL MEDICAL MEDICAL PRSS EQUIPME EQUIPME CAPABILIT Y W/O BACKU COMPUTERI 06573 CHARISMA FLORENTINOD 6 OPHTHALMI C IMAGING RETINA INJECTION J2778 CHARISMA Joaquin RANIBIZUM AB 0.1 MG INTRAVITR 53046 CHARISMA ZAFAR EAL NJX 6 PHARMACOL OGIC AGT SPX CONTINUOU E0601 CORNELIUS CORNELIUS S 6 HOME HOME POSITIVE MEDICAL MEDICAL AIRWAY EQUIPME EQUIPME PRESSURE DEVICE CREATININ 63938 FAMILY JAVIER E OTHER 6 CARE R H SOURCE ASSOCIATE S HEMOGLOBI 20480 FAMILY JAVIER N 6 CARE R H GLYCOSYLA ASSOCIATE LIZ A1C S LIPID 66317 FAMILY JAVIER PANEL 6 CARE R H ASSOCIATE S COLLECTIO 10662 FAMILY JAVIER N VENOUS 6 CARE R H BLOOD ASSOCIATE VENIPUNCT S URE ALBUMIN 52816 FAMILY JAVIER URINE 6 CARE R H MICROALBU ASSOCIATE MIN S SEMIQUANT ITATIVE IIV4 VACC 09617 FAMILY FAMILY SPLIT 6 CARE CARE VIRUS 0.5 ASSOCIATE ASSOCIATE ML DOS S S FOR IM USE COMPREHEN 15442 COMBINED COMBINED SIVE 6 PHYSICIAN PHYSICIAN METABOLIC [...] EQUIPME EQUIPME PRESSURE DEVICE TUBING A7037 CORNELIUS SHEILDS USED WITH 6 HOME HOME POSITIVE MEDICAL MEDICAL AIRWAY EQUIPME EQUIPME PRESSURE DEVICE DSTRJ 28508 CHARISMA ZAFAR LOCLZD 6 ANG ANG LESION RETINA 1/> SESS PC INTRAVITR 98502 CHARISMA ZAFAR EAL NJX 6 ANG ANG PHARMACOL OGIC AGT SPX INJECTION J2778 CHARISMA ZAFAR 6 ANG ANG RANIBIZUM AB 0.1 MG COMPUTERI 34100 CHARISMA FLORENTINOD 6 ANG ANG OPHTHALMI C IMAGING RETINA COLLECTIO 08329 FAMILY KECIA N 6 CARE DALTON CAPILLARY ASSOCIATE BLOOD S SPECIMEN HEMOGLOBI 91437 FAMILY KECIA N 6 CARE DALTON GLYCOSYLA ASSOCIATE LIZ A1C S SLEEP STD 71486 [facility] AIRFLOW 6 [facility] HRT INC INC RATE&O2 SAT EFFORT UNATT COMPUTERI 31565 CHARISMA ZAFAR ZED 6 ANG ANG OPHTHALMI C IMAGING RETINA INJECTION J2778 CHARISMA ZAFAR 6 ANG ANG RANIBIZUM AB 0.1 MG INTRAVITR 71599 CHARISMA ZAFAR EAL NJX 6 ANG ANG PHARMACOL OGIC AGT SPX FOR DIAB A5513 THE THE ONLY MX 6 [facility]ALTH[facility] HEALTHY DNSITY FOOT FOOT INSRT CENTER CENTER CSTM MOLD CSTM EA DIAB ONLY A5500 THE THE FIT CSTM 6 HEALTHY HEALTHY PREP&SPL FOOT FOOT SHOE MX CENTER CENTER DNSITY INSRT HEMOGLOBI 95308 FAMILY ANIDO ROS N 6 CARE GLYCOSYLA ASSOCIATE LIZ A1C S LIPID 25037 FAMILY JAVIER PANEL 6 CARE R H ASSOCIATE S COMPREHEN 70564 COMBINED COMBINED SIVE 6 PHYSICIAN PHYSICIAN METABOLIC S LA S LA PANEL INJECTION J9035 CHARISMA Joaquin ANG ANG BEVACIZUM AB 10 MG COMPUTERI 52847 CHARISMA FLORENTINOD 6 ANG ANG OPHTHALMI C IMAGING RETINA INTRAVITR 35383 CHARISMA ZAFAR EAL NJX 6 ANG ANG PHARMACOL OGIC AGT SPX DEBRIDEME 20532 PROGRESSI MAYANK NT 6 VE ROMA SUBCUTANE PODIATRY OUS TISSUE 20 SQ CM/< SIMPLE 10518 FAMILY JUMA REPAIR 6 CARE TAR SCALP/NEC ASSOCIATE K/AX/JENNIFER S T/TRUNK 2.5CM/< DEBRIDEME 38666 PROGRESSI MAYANK NT 6 VE ROMA SUBCUTANE PODIATRY OUS TISSUE 20 SQ CM/< WALKING L4360 PROGRESSI MAYANK BOOT 6 VE ROMA PNEUMATC PODIATRY &/ VACUUM PREFAB CUSTM FIT ADD LOW L2840 PROGRESSI MAYANK EXTREM 6 VE ROMA ORTHOTIC PODIATRY TIB LENGTH SOCK FX/= EA INTRAVITR 64051 CHARISMA ZAFAR EAL NJX 6 ANG ANG PHARMACOL OGIC AGT SPX INJECTION J9035 CHARISMA ZAFAR 6 ANG ANG BEVACIZUM AB 10 MG COMPUTERI 37897 CHARISMA MCKEON 6 ANG ANG OPHTHALMI C IMAGING RETINA RADEX 63662 VISHAL MEHTA ALL FOOT 6 MEDICAL COMPLETE IMAGING MINIMUM 3 ASS VIEWS COMPUTERI 28307 CHARISMA MCKEON 6 ANG ANG OPHTHALMI C IMAGING RETINA INJECTION J9035 CHARISMA ZAFAR 6 ANG ANG BEVACIZUM AB 10 MG INTRAVITR 58407 CHARISMA ZAFAR EAL NJX 6 ANG ANG PHARMACOL OGIC AGT SPX HEMOGLOBI 50750 FAMILY JAVIER N 6 CARE GLYCOSYLA ASSOCIATE LIZ A1C S COLLECTIO 51768 FAMILY JAVIER N 6 CARE CAPILLARY ASSOCIATE BLOOD S SPECIMEN INTRAVITR 55675 CHARISMA ALEJANDRO NJX 6 ANG ANG PHARMACOL OGIC AGT SPX INJECTION J9035 CHARISMA ZAFAR 6 ANG ANG BEVACIZUM AB 10 MG COMPUTERI 88154 CHARISMA FLORENTINOD 6 ANG ANG OPHTHALMI C IMAGING RETINA COLLECTIO 57354 FAMILY JAVIER N 6 CARE R H CAPILLARY ASSOCIATE BLOOD S SPECIMEN BLOOD 51391 FAMILY JAVIER COUNT 6 CARE R H COMPLETE ASSOCIATE AUTO&AUTO S DIFRNTL WBC INTRAVITR 02804 CHARISMA ZAFAR EAL NJX 6 ANG ANG PHARMACOL OGIC AGT SPX INJECTION J9035 CHARISMA ZAFAR 6 ANG ANG BEVACIZUM AB 10 MG COMPUTERI 15957 CHARISMA MCKEON 6 ANG ANG OPHTHALMI C IMAGING RETINA COMPREHEN 03738 COMBINED COMBINED SIVE 6 PHYSICIAN PHYSICIAN METABOLIC S LA S LA PANEL BLOOD 44069 FAMILY JAVIER COUNT 6 CARE R H COMPLETE ASSOCIATE AUTO&AUTO S DIFRNTL WBC LIPID 71503 FAMILY FAMILY PANEL 6 CARE LOSS PREVENTION RESEARCH ENGINEER ASSOCIATE S S HEMOGLOBI 96172 FAMILY FAMILY N 6 CARE CARE GLYCOSYLA ASSOCIATE ASSOCIATE LIZ A1C S S INJECTION J9035 CHARISMA ZAFAR 6 ANG ANG BEVACIZUM AB 10 MG INTRAVITR 55320 CHARISMA ZAFAR EAL NJX 6 ANG ANG PHARMACOL OGIC AGT SPX FLUORESCE 18010 CHARISMA ZAFAR IN ANGRPH 6 ANG ANG W/MULTIFR YAMIL I&R UNI/BI COMPUTERI 45668 CHARISMA ZAFAR ZED 5 ANG ANG OPHTHALMI C IMAGING RETINA OPHTH 56212 SCIFRES SCIFRES MEDICAL 5 ANG ANG XM&EVAL COMPRE NEW PT 1/> VST Encounters Encounter Start End Date Code Location Performer Type Date OFFICE 67445 FAMILY GEOVANNYBERRY OUTPATIEN 7 7 CARE T VISIT ASSOCIATE 15 S MINUTES [facility] T OFFICE 23066 FAMILY JAVIER OUTPATIEN 7 7 CARE T VISIT ASSOCIATE 15 S MINUTES OFFICE 56685 FAMILY JAVIER OUTPATIEN 7 7 CARE T VISIT ASSOCIATE 25 S MINUTES OFFICE 74902 JUANCHO BRYAN OUTPATIEN 7 7 MEDICAL T VISIT SERV 15 FOUNDATIO MINUTES [facility] T [facility]ALS EMERGENCY 62851 [facility] 7 7 [facility] DEPARTMEN INC T VISIT LIMITED/M [facility]OR [facility] - 7 7 [facility] OUTPATIEN INC T OFFICE 76152 FAMILY JAVIER OUTPATIEN 7 7 CARE T VISIT ASSOCIATE 15 S MINUTES [facility]OSP[facility] - [facility] T [facility] - 6 6 [facility] OUTPATIEN INC T OFFICE 60784 FAMILY JAVIER OUTPATIEN 6 6 CARE T VISIT ASSOCIATE 15 S MINUTES [facility]OSP[facility] - 6 6 [facility] OUTPATIEN INC T OFFICE 83405 FAMILY JAVIER OUTPATIEN 6 6 CARE R H T VISIT ASSOCIATE 15 S MINUTES EMERGENCY 30099 [facility] 6 6 [facility] DEPARTMEN INC T VISIT MODERATE SEVERITY EMERGENCY 24408 JL RICHEY, 6 6 PHYSICIAN JR RG [facility], [facility] T VISIT HIGH/URGE NT SEVERITY HOSPITAL [facility] - 6 6 [facility] INC T OFFICE 60208 [facility] LENNOX SUÁREZ OUTPATIEN 6 6 PHYSICIAN T NEW 45 S GROUP MINUTES OFFICE 50512 FAMILY JAVIER OUTPATIEN 6 6 CARE R H T VISIT ASSOCIATE 25 S MINUTES OFFICE 08969 [facility] JORGE OUTPATIEN 6 6 PHYSICIAN HANNA T VISIT S GROUP 15 MINUTES OFFICE 45561 CHARISMA ZAFAR OUTPATIEN 6 6 ANG ANG T VISIT 25 MINUTES OFFICE 14742 FAMILY KECIA OUTPATIEN 6 6 CARE DALTON T VISIT ASSOCIATE 15 S MINUTES [facility] - 6 6 [facility] INC T OFFICE 08776 PROGRESSI MAYANK OUTPATIEN 6 6 VE ROMA T VISIT PODIATRY 15 MINUTES OFFICE 24523 PROGRESSI MAYANK OUTPATIEN 6 6 VE ROMA T VISIT PODIATRY 15 MINUTES OFFICE 10225 FAMILY JAVIER OUTPATIEN 6 6 CARE R H T VISIT ASSOCIATE 15 S MINUTES OFFICE 90446 CHARISMA ZAFAR OUTPATIEN 6 6 ANG ANG T VISIT 25 MINUTES OFFICE 95445 PROGRESSI MAYANK OUTPATIEN 6 6 VE ROMA T VISIT PODIATRY 15 MINUTES OFFICE 30783 PROGRESSI MAYANK OUTPATIEN 6 6 VE ROMA T NEW 30 PODIATRY MINUTES EMERGENCY 58455 JL CLARK 6 6 [facility] HIGH/URGE NT SEVERITY OFFICE 04678 FAMILY JAVIER OUTPATIEN 6 6 CARE T VISIT ASSOCIATE 25 S MINUTES OFFICE 66547 [place] [facility] 6 6 MEDICAL L ION SERV NEW/ESTAB FOUNDATIO PATIENT N 60 MIN OFFICE 79552 FAMILY JAVIER OUTPATIEN 6 6 CARE R H T VISIT ASSOCIATE 15 S MINUTES OFFICE 21892 FAMILY JAVIER OUTPATIEN 6 6 CARE R H T VISIT ASSOCIATE 25 S MINUTES OFFICE 40133 CHARISMA ZAFAR OUTPATIEN 5 5 SHAUNA BEE 45 MINUTES OFFICE 41015 [facility]EN 5 5 [facility] 15 MINUTES OFFICE 31460 FAMILY JAVIER OUTPATIEN 5 5 CARE R H T VISIT ASSOCIATE 25 S MINUTES
--- OUTSIDE RECORDS SUMMARY | 2016-12-25 14:02 | External Medical Summary Rpt ---
Author Author , FRANK MARIE Address Unknown Phone [email or web address] Immunization Name Date Rout CVX Reac Dose Comm Prov Is Faci e tion ent ider Refu lity Give sed n Td 03-0 9 999 Hist H149 No H149 (dc 6-19 oric lt), 97 al Info adso rmat rbed ion - Sour ce Unsp ecif ied
--- OUTSIDE RECORDS SUMMARY | 2016-12-25 14:02 | External Medical Summary Rpt ---
Author Author FRANK Allen, [employer] Address Unknown Phone Unavailable
--- OUTSIDE RECORDS SUMMARY | 2016-12-25 14:02 | External Medical Summary Rpt ---
Author Author , FRANK MARIE Address Unknown Phone [email or web address] Immunization Name Date Rout CVX Reac Dose Comm Prov Is Faci e tion ent ider Refu lity Give sed n Td 03-0 9 999 Hist H149 No H149 (dc 6-19 oric lt), 97 al Info adso rmat rbed ion - Sour ce Unsp ecif ied
[2016-12-25 14:10] VITALS: BP 190/70
[2016-12-25] MEDS ORDERED: BACTRIM DS 8001 TA1 PO (14:10)
--- NOTE | 2016-12-25 14:11 | Urgent Treatment Center Report ---
History of Present Issue Date/Time Seen by Provider 12/25/16 1401 Visit Reason Pt arrived:Walked Presenting Problem:PT HAS OPEN WOUND ON HER LEFT THRID TOE THAT HAS BEEN THERE FOR A COUPLE OF DAYS Location if Accident: Onset of symptoms date/time:/ or onset unknown for:MEDICAL HX UNKNOWN Have you (or family members/close friends) recently traveled outside the [place]? N If Yes, where/when: Have you had exposure to infectious disease within the past month? TB? Other? Specify: Source patient, RN notes reviewed Exam Limitations no limitations Comment Patient is diabetic and injured her left 3rd toe last week, 12/21/16. Saw Dr Manzo on 12/22/16 and was started on Keflex. Woke this am with increasing redness, swelling in her left foot, and nausea. She doesn't have much feeling in her feet so isn't sure exactly when/how she injured it. ALLERGIES Coded Allergies: No Known Allergies (07/01/16) Home Medications Reported Medications INSUL REG 30%ISOPHAN 70% HUMAN (Humulin 70-30 Vial) 60 UNITS SC BID #60 DULOXETINE HCL (Cymbalta 30MG) 30 MG PO DAILY Atorvastatin Calcium (Atorvastatin) 40 MG PO DAILY SAXAGLIPTIN HCL (Onglyza) 5 MG PO DAILY INSULIN REGULAR, HUMAN (Novolin R) 100 UNITS SC ACHS History Medical History General CAD? No Angina: No SC: No Hypertension? No Hyperlipidemia? Yes CHF? No DVT? No PE? No COPD? No Asthma? No Anemia? No GERD? No Gastric ulcers? No GI Bleed? No Hernia? No Thyroid Problems? No Hypothyroidism? No CVA? No Seizures? No Diabetes? Yes Insulin Dependent: Yes Insulin Pump: No Home FSBS? Yes Renal Insuffiency? No UTI? No Stones? No BPH? No GB Disease: No Nephritic Syndrome? No Asplenia? No Hepatitis? No Sickle Cell Disease? No Arthritis? No Migraines? No Cataracts? No Glaucoma? No MRSA? No HIV? No TB? No Anxiety? No Depression? No Cancer? No More? No Immunization HX DT/Tetanus > 10 YRS Flu NOT SURE Pneumonia NOT SURE Surgical Hx Previous Surgery?Y RIGHT EAR SURGERY TONSILECTOMY Family History Family HX Diabetes Yes CAD Yes Hypertension No Hyperlipidemia Yes Cancer Yes TB Yes Social History Smoking Hx Smoker: Current Every Day Smoker Tobacco: Yes Type Cigarettes Packs/day 1 1/2 - 2 Packs Alcohol Alcohol: No Review of Systems All Other Systems Reviewed and Negative Musculoskeletal see HPI Physical Exam Vital Signs Vital Signs Date Time Temp Pulse Resp B/P Pulse O2 O2 Flow FiO2 Ox Delivery Rate 12/25 1410 98.3 78 16 190/70 98 12/25 1354 98.3 78 16 190/70 98 General Appearance normal appearance, no apparent distress Respiratory Status No: respiratory distress, trachea midline, chest symmetrical. Cardiovascular normal exam, regular rate/rhythm, no peripheral edema, no gallop, no JVD, no murmur, no rub Extremities left 3rd toe has erythema, edema, with swelling into left foot; tip of toe has been avulsed with granulation tissue present Neurologic alert, normal exam, oriented x 3 Mental status normal mood/affect Medical Decision Making LABS/Meds/Orders Pt receiving controlled substance in ED? No Results/Orders Current Medication Orders Sig/Cm Start time Last Medication Dose Route Stop Time Status Admin Diphtheria/Pertussis/ 0.5 ML ONCE ONE 12/25 1415 AC 12/25 Tetanus Vacc IM 12/25 1416 1409 Diphtheria/Pertussis/ 0 .STK-MED ONE 12/25 1408 DC Tetanus Vacc IM Orders Procedure Date/time Status CULTURE, WOUND 12/25 140 Active Departure Departure Time of Disposition 1408 Disposition DC Home or Self Care(routine) Clinical Impression Primary Impression: Cellulitis of toe, left Secondary Impressions: Diabetes Qualifiers: Diabetes mellitus type: type 2 Diabetes mellitus complication status: with neurologic complications Diabetes mellitus complication detail: with unspecified neuropathy Diabetes mellitus [facility] insulin use: unspecified watermaster insulin use status Qualified Code: E11.40 - Type 2 diabetes mellitus with diabetic neuropathy, unspecified Condition STABLE Referrals Bismark Manzo MD (Family): 4 Days-Call Office Patient Instructions DI for Cellulitis -- Adult Additional Instructions F/U with Dr Manzo for culture results Discharge Counseling Counseled pt/family regarding diagnosis, medications/RX, home care, follow up needs Prescriptions Current Visit Scripts SULFAMETHOXAZOLE W/TRIMETHOPRI (Bactrim Ds Tab) 1 TABLET PO BID #20 TAB at 1411
== END 2016-12-25 14:15 | disposition home or self-care (01) ==
LOC: UTC 13:47 → ER 13:47 → UTC 13:55
DX: L03.032 Cellulitis of left toe (principal); E11.40 Type 2 diabetes mellitus with diabetic neuropathy, unspecified; Z72.0 Tobacco use

== ENCOUNTER 2017-01-28 09:47 | Outpatient (CLI) | payer MEDICAID ==
[~2017-01-28 09:47] MED LIST changes: +BACTRIM DS 8001 TA1 PO; +BYDUREON PEN2 MG SC; +WALK5 XX
[2017-01-28 10:38] VITALS: BP 155/82
[2017-01-28 11:20] VITALS: BP 149/75
== END 2017-01-28 11:20 | disposition home or self-care (01) ==
LOC: COP 09:47
DX: M86.9 Osteomyelitis, unspecified (principal); L03.032 Cellulitis of left toe; E11.621 Type 2 diabetes mellitus with foot ulcer
CPT/HCPCS: J0878

== ENCOUNTER 2017-01-29 09:44 | Outpatient (CLI) | payer MEDICAID ==
[2017-01-29 10:11] VITALS: BP 139/68
[2017-01-29 11:08] VITALS: BP 132/68
== END 2017-01-29 11:08 | disposition home or self-care (01) ==
LOC: COP 09:44
DX: M86.9 Osteomyelitis, unspecified (principal); L03.032 Cellulitis of left toe; E11.621 Type 2 diabetes mellitus with foot ulcer
CPT/HCPCS: J0878

== ENCOUNTER → 2017-02-03 | Outpatient (CLI) | payer MEDICAID ==
[2017-02-03 10:50] VITALS: BP 153/68
[2017-02-03 11:15] VITALS: BP 143/79
[2017-02-03 11:45] VITALS: BP 133/76
== END ==
LOC: COP 10:30
DX: M86.9 Osteomyelitis, unspecified (principal); L03.032 Cellulitis of left toe; E11.621 Type 2 diabetes mellitus with foot ulcer

== ENCOUNTER 2017-02-13 09:33 | Outpatient (CLI) | payer MEDICAID ==
[2017-02-13 09:39] VITALS: BP 127/69
[2017-02-13 10:26] VITALS: BP 121/72
== END 2017-02-13 10:26 | disposition home or self-care (01) ==
LOC: COP 09:33
DX: M86.9 Osteomyelitis, unspecified (principal); L03.032 Cellulitis of left toe; E11.621 Type 2 diabetes mellitus with foot ulcer
CPT/HCPCS: J0878

== ENCOUNTER 2017-02-15 09:30 | Outpatient (CLI) | payer MEDICAID ==
[2017-02-15 09:51] VITALS: BP 140/64
[2017-02-15 10:21] VITALS: BP 135/67
[2017-02-15 10:40] VITALS: BP 126/69
== END 2017-02-15 10:45 | disposition hospice, home (50) ==
LOC: COP 09:30
DX: M86.9 Osteomyelitis, unspecified (principal); L03.032 Cellulitis of left toe; E11.621 Type 2 diabetes mellitus with foot ulcer
CPT/HCPCS: J0878

== ENCOUNTER 2017-02-16 08:55 | Outpatient (CLI) | payer MEDICAID ==
[2017-02-16 09:20] VITALS: BP 129/56
[2017-02-16 09:50] VITALS: BP 128/57
[2017-02-16 10:00] VITALS: BP 126/55
== END 2017-02-16 10:10 | disposition hospice, home (50) ==
LOC: COP 08:55
DX: M86.9 Osteomyelitis, unspecified (principal); L03.032 Cellulitis of left toe; E11.621 Type 2 diabetes mellitus with foot ulcer
CPT/HCPCS: J0878

== ENCOUNTER 2017-02-17 09:00 | Outpatient (CLI) | payer MEDICAID ==
[2017-02-17 09:30] VITALS: BP 126/66
[2017-02-17 10:00] VITALS: BP 126/70
== END 2017-02-17 10:00 | disposition home or self-care (01) ==
LOC: COP 09:00
DX: M86.9 Osteomyelitis, unspecified (principal); L03.032 Cellulitis of left toe; E11.621 Type 2 diabetes mellitus with foot ulcer

== ENCOUNTER → 2017-02-18 | Outpatient (CLI) | payer MEDICAID ==
[~2017-02-18] VITALS: Ht 175.3 cm; Wt 113.4 kg
[2017-02-18 10:00] VITALS: BP 139/68; BP 139/70
== END ==
LOC: COP 09:00
DX: M86.9 Osteomyelitis, unspecified (principal); L03.032 Cellulitis of left toe; E11.621 Type 2 diabetes mellitus with foot ulcer
CPT/HCPCS: J0878

== ENCOUNTER → 2017-02-19 | Outpatient (CLI) | payer MEDICAID ==
[~2017-02-19] VITALS: Ht 170.2 cm; Wt 113.4 kg
[2017-02-19 11:20] VITALS: BP 112/66
[2017-02-19 12:03] VITALS: BP 126/64
== END ==
LOC: COP 09:00
DX: M86.9 Osteomyelitis, unspecified (principal); L03.032 Cellulitis of left toe; E11.621 Type 2 diabetes mellitus with foot ulcer
CPT/HCPCS: J0878

== ENCOUNTER 2017-03-01 09:40 | Outpatient (CLI) | payer MEDICAID ==
[2017-03-01 09:57] VITALS: BP 143/71
[2017-03-01 10:30] VITALS: BP 132/78
[2017-03-01 11:00] VITALS: BP 142/69
== END 2017-03-01 11:05 | disposition home or self-care (01) ==
LOC: COP 09:40
DX: M86.9 Osteomyelitis, unspecified (principal); L03.032 Cellulitis of left toe; E11.621 Type 2 diabetes mellitus with foot ulcer
CPT/HCPCS: J0878

== ENCOUNTER 2017-03-02 09:35 | Outpatient (CLI) | payer MEDICAID ==
[~2017-03-02] VITALS: Ht 170.2 cm; Wt 115.2 kg
[2017-03-02 10:15] VITALS: BP 131/70
[2017-03-02 10:50] VITALS: BP 133/73
== END 2017-03-02 11:10 | disposition home or self-care (01) ==
LOC: COP 09:35
DX: M86.9 Osteomyelitis, unspecified (principal); L03.032 Cellulitis of left toe; E11.621 Type 2 diabetes mellitus with foot ulcer
CPT/HCPCS: J0878

== ENCOUNTER 2017-03-03 09:30 | Outpatient (CLI) | payer MEDICAID ==
[~2017-03-03] VITALS: Ht 170.2 cm; Wt 115.2 kg
[2017-03-03 10:05] VITALS: BP 128/69
[2017-03-03 10:35] VITALS: BP 140/63
[2017-03-03 10:50] VITALS: BP 136/68
== END 2017-03-03 10:55 | disposition home or self-care (01) ==
LOC: COP 09:30
DX: M86.9 Osteomyelitis, unspecified (principal); L03.032 Cellulitis of left toe; E11.621 Type 2 diabetes mellitus with foot ulcer
CPT/HCPCS: J0878

== ENCOUNTER → 2017-03-04 | Outpatient (CLI) | payer MEDICAID ==
[~2017-03-04] VITALS: Ht 175.3 cm; Wt 113.4 kg
[2017-03-04 09:20] VITALS: BP 122/73; BP 122/78
== END ==
LOC: COP 09:00
DX: M86.9 Osteomyelitis, unspecified (principal); L03.032 Cellulitis of left toe; E11.621 Type 2 diabetes mellitus with foot ulcer
CPT/HCPCS: J0878

== ENCOUNTER → 2017-03-05 | Outpatient (CLI) | payer MEDICAID ==
[~2017-03-05] VITALS: Ht 175.3 cm; Wt 115.2 kg
[2017-03-05 10:50] VITALS: BP 125/58
[2017-03-05 11:28] VITALS: BP 110/65
== END ==
LOC: COP 09:00
DX: M86.9 Osteomyelitis, unspecified (principal); L03.032 Cellulitis of left toe; E11.621 Type 2 diabetes mellitus with foot ulcer

== ENCOUNTER 2017-03-06 09:40 | Outpatient (CLI) | payer MEDICAID ==
[2017-03-06 09:49] VITALS: BP 133/68
[2017-03-06 10:19] VITALS: BP 130/65
[2017-03-06 10:35] VITALS: BP 126/71
== END 2017-03-06 10:35 | disposition home or self-care (01) ==
LOC: COP 09:40
DX: M86.9 Osteomyelitis, unspecified (principal); L03.032 Cellulitis of left toe; E11.621 Type 2 diabetes mellitus with foot ulcer
CPT/HCPCS: J0878

== ENCOUNTER 2017-03-07 09:50 | Outpatient (CLI) | payer MEDICAID ==
[2017-03-07 10:03] VITALS: BP 128/69
[2017-03-07 10:33] VITALS: BP 130/67
[2017-03-07 10:50] VITALS: BP 137/68
== END 2017-03-07 10:55 | disposition home or self-care (01) ==
LOC: COP 09:50
DX: M86.9 Osteomyelitis, unspecified (principal); L03.032 Cellulitis of left toe; E11.621 Type 2 diabetes mellitus with foot ulcer
CPT/HCPCS: J0878

== ENCOUNTER 2017-03-08 09:35 | Outpatient (CLI) | payer MEDICAID ==
[~2017-03-08] VITALS: Ht 175.3 cm; Wt 115.2 kg
[2017-03-08 10:10] VITALS: BP 131/65
[2017-03-08 10:40] VITALS: BP 120/66
[2017-03-08 10:55] VITALS: BP 115/59
== END 2017-03-08 11:09 | disposition home or self-care (01) ==
LOC: COP 09:35
DX: M86.9 Osteomyelitis, unspecified (principal); L03.032 Cellulitis of left toe; E11.621 Type 2 diabetes mellitus with foot ulcer
CPT/HCPCS: J0878

== ENCOUNTER 2017-03-09 08:55 | Outpatient (CLI) | payer MEDICAID ==
[2017-03-09 09:34] VITALS: BP 145/67
[2017-03-09 10:04] VITALS: BP 134/67
[2017-03-09 10:15] VITALS: BP 137/66
== END 2017-03-09 10:25 | disposition home or self-care (01) ==
LOC: COP 08:55
DX: M86.9 Osteomyelitis, unspecified (principal); L03.032 Cellulitis of left toe; E11.621 Type 2 diabetes mellitus with foot ulcer
CPT/HCPCS: J0878

== ENCOUNTER 2017-03-10 09:45 | Outpatient (CLI) | payer MEDICAID ==
[~2017-03-10] VITALS: Ht 175.3 cm; Wt 115.2 kg
[2017-03-10 10:15] VITALS: BP 146/69
[2017-03-10 10:55] VITALS: BP 133/64
== END 2017-03-10 11:20 | disposition home or self-care (01) ==
LOC: COP 09:45
DX: M86.9 Osteomyelitis, unspecified (principal); L03.032 Cellulitis of left toe; E11.621 Type 2 diabetes mellitus with foot ulcer
CPT/HCPCS: J0878

== ENCOUNTER 2017-03-14 16:22 | Outpatient (CLI) | payer MEDICAID | END 2017-03-14 16:45 | disposition home or self-care (01) | LOC: COP 16:22 | DX: M86.9 Osteomyelitis, unspecified (principal); L03.032 Cellulitis of left toe; E11.621 Type 2 diabetes mellitus with foot ulcer; Z48.00 Encounter for change or removal of nonsurgical wound dressing | CPT/HCPCS: G0463 ==